=== PATIENT | female | born 1980 | race Caucasian/White ===

== ENCOUNTER 2017-08-29 23:52 | Emergency (ER) | payer OTHER ==
[2017-08-30] MEDS ORDERED: IPRATROPIUM/ALBUTEROL SULFATE 3 ML AMPUL.NEB NEB STA (00:02)
[2017-08-30] MEDS ORDERED: LEVOFLOXACIN 500 MG TABLET PO ONE (00:24)
[2017-08-30] MEDS ORDERED: ALBUTEROL 90MCG/PUFF INHALER IH ONE (00:24)
--- NOTE | 2017-08-30 00:28 | ED Physician Documentation ---
Upper Respiratory Symptoms - HISTORIAN Historian: patient, spouse - HPI Stated Complaint: Cough/Congestion Chief Complaint: Cough/ Upper Respiratory Onset: days ago (10) Associated Symptoms: fever, chills, earache, runny nose, sinus pain, sinus drainage, sore throat, productive cough. denies: sweating, hoarseness, allergy , hay fever, chest pain, bloody cough, shortness of breath, hurts to breathe, headache, other Further Comments: yes (36 year old female patient presents with complaint of cough, wheezing, headache, nasal congeston and sinus pressure for the past 10 days. Has used OTC pseudophed, mucinex and dayquil with no relief.) - ROS CONST/EYES: denies: weakness, eye redness, eye itching, other CVS/RESP: none, other (cough). denies: chest pain, shortness of breath, palpitations LYMPH: denies: leg swelling, rash, swollen glands, ankle swelling, other GI/: vomiting (related to coughing hard). denies: none, abdominal pain, problems urinating, nausea, diarrhea, black stools, other NEURO/PSYCH: denies: fainting, dizziness, confusion, anxiety, depression, other MS/SKIN: denies: joint pain, muscle aches, rash, other - PAST HX Lung Disease: none PE Risk Factors: none Surgeries/Procedures: , BLT Allergies/Adverse Reactions: Allergies Allergy/AdvReac Type Severity Reaction Status Date / Time No Known Allergies Allergy Unverified 08/30/17 00:21 Home Medications: Ambulatory Orders Medication Instructions Recorded NK [NK] 08/30/17 - SOCIAL HX Smoking History: cigarettes Drug Use: marijuana - FAMILY HX Family History: denies: none - VITAL SIGNS Vital Signs: Vital Signs Temp Pulse Resp BP Pulse Ox 97.4 F L 74 20 106/67 96 08/29/17 23:55 08/29/17 23:55 08/29/17 23:55 08/29/17 23:55 08/29/17 23:55 - REVIEWED ASSESSMENTS Nursing Assessment Reviewed: Yes Vitals Reviewed: Yes Progress - Progress Progress: Continued wheezing after Duoneb. Patient does not have nebulizer or inhaler at home. Albuterol 2 puff given Patient does not have prescription insurance. Coupon for levaquin and prednisone provided. Patient verbalized understanding of cost and how to use prescription. Reviewed discharge instructions. Verbalized understanding. Levaquin started in [facility], BBS improved after albuterol - faint exp. wheeze. List of free clinic provided. ED Results Lab/Radiology - Orders Orders: ED Orders Category Date Time Status Albuterol Sulfate [Ventolin Hfa] Med 08/30/17 00:24 Discontinued 2 puff IH NOW ONE Ipratropium/Albuterol Sulfate [Duoneb] Med 08/30/17 00:02 Discontinued 3 ml NEB STAT STA Levofloxacin [Levaquin] Med 08/30/17 00:24 Discontinued 500 mg PO NOW ONE Upper Respiratory Symptoms - EXAM General Appearance: moderate distress EENT: eyes nml inspection, lids & conjunct. 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 carton and can supply supervisor an over the counter decongestant such as pseudoped, dayquil and Nyquil at your pharmacy. Treat your symptoms with over the counter medication. You may want to try Vicks rub on your chest and/or feet Cough drops as needed for cough and sore throat. Increase your fluid intake juices, hot tea, non-caffeinated beverages Use a humidifier in the room where you sleep. You can also sit in a steam filled bathroom 1-2 times a day. Tylenol or Ibuprofen as needed for fever, pain and body aches. Start daily allergy medication such as Claritin, Tatianna or Zyrtec. Start a daily nasal spray such as Flonase or Nasonex You may benefit from the use of a netti pot follow package instructions. See your primary care doctor after you have completed your antibiotic if you symptoms have not resolved. Many times it takes multiple rounds of antibiotics to resolve a sinus infection. Condition: Stable Disposition: 01 HOME, SELF-CARE Decision to Admit: NO Decision Time: 12:40
[2017-08-30 00:52] VITALS: BP 106/67
== END 2017-08-30 00:45 | disposition home or self-care (01) ==
LOC: ED 23:52
DX: J01.40 Acute pansinusitis, unspecified (principal)
CPT/HCPCS: 94640; 99283

== ENCOUNTER 2018-05-18 09:24 | Emergency (ER) | payer BC ==
[2018-05-18 09:47] VITALS: BP 128/86
--- NOTE | 2018-05-18 09:52 | ED Physician Documentation ---
Upper Respiratory Symptoms - HISTORIAN Historian: patient - HPI Stated Complaint: Cough, right ear pain, headache Chief Complaint: Cough/ Upper Respiratory Additional Information: Patient is a 37-year-old female that presents to the ER with c/o upper resp. sx's that started 4 days ago. She has noted some wheezing when she coughs and occasionally has a productive cough with greenish/yellow sputum. She states that her face feels like she has pressure and her ears ache. She has not really tried anything over the counter- she figured it would just go away. She did state that she used a family members albuterol inhaler and it helped her to breath easier. Onset: days ago (4 days ago) Duration: sudden-Onset Context: denies: recent foreign travel, insect bite(s) Severity: moderate Associated Symptoms: chills, earache, runny nose, sinus pain, sinus drainage, sore throat, productive cough. denies: fever, sweating Worsened by Deep Breath: No Further Comments: no - ROS CONST/EYES: denies: eye redness, eye itching CVS/RESP: shortness of breath (with exertion due to congestion) LYMPH: denies: swollen glands GI/: denies: abdominal pain, vomiting, nausea, diarrhea NEURO/PSYCH: denies: fainting, dizziness MS/SKIN: muscle aches ("achy all over") - PAST HX Lung Disease: none PE Risk Factors: none Other History: other (eczema) Immunizations: UTD Allergies/Adverse Reactions: Allergies Allergy/AdvReac Type Severity Reaction Status Date / Time No Known Allergies Allergy Verified 05/18/18 09:46 Home Medications: Ambulatory Orders Medication Instructions Recorded Albuterol Sulfate [Proair HFA] 2 inh IH Q4-6 PRN #1 [email or web address] 05/18/18 Amoxicillin/Potassium Clav 1 each PO BID #20 tablet 05/18/18 [Augmentin 875Mg/125Mg] Methylprednisolone [Medrol] 4 mg PO DIRECTED #1 tab.ds.pk 05/18/18 - SOCIAL HX Smoking History: cigarettes Alcohol Use: none Drug Use: none - FAMILY HX Family History: no significant history - VITAL SIGNS Vital Signs: Vital Signs Temp Pulse Resp BP Pulse Ox 98.8 F 93 H 24 128/86 98 05/18/18 09:27 05/18/18 09:27 05/18/18 09:27 05/18/18 09:27 05/18/18 09:27 - REVIEWED ASSESSMENTS Nursing Assessment Reviewed: Yes Vitals Reviewed: Yes Upper Respiratory Symptoms - EXAM General Appearance: alert, mild distress EENT: eyes nml inspection, PERRL, pain over sinuses, maxillary, TM dullness (R), mucosal edema, purulent nasal drainage, other (erythema to right external ear canal) Neck: supple Respiratory: no resp. distress, speaks full sentences, wheezes Abdomen: non-tender, nml bowel sounds CVS: reg rate & rhythm, heart sounds normal, no murmur Skin: color nml, no rash, warm,dry Extremities: normal range of motion Neuro/Psych: oriented x3, neuro intact, mood/affect nml Discharge Clincal Impression: Upper respiratory infection, Acute sinusitis Prescriptions: Albuterol Sulfate [Proair HFA] 2 inh IH Q4-6 PRN #1 hfa.[email or web address] PRN Reason: Wheezing Amoxicillin/Potassium Clav [Augmentin 875Mg/125Mg] 1 each PO BID #20 tablet Methylprednisolone [Medrol] 4 mg PO DIRECTED #1 tab.ds.pk Referrals: Primary Doctor,No [Primary Care Provider] - 2 Days Additional Instructions: Take medications as directed Increase fluid intake (no caffeine or sugary drinks) Drink one cup of hot tea with a tsp of honey daily to thin secretions Alternate Tylenol and Motrin for discomfort Follow up with PCP as needed Condition: Good Disposition: 01 HOME, SELF-CARE Decision to Admit: NO Decision Time: 09:57
== END 2018-05-18 09:50 | disposition home or self-care (01) ==
LOC: ED 09:24
DX: J06.9 Acute upper respiratory infection, unspecified (principal); J01.90 Acute sinusitis, unspecified; Z72.0 Tobacco use
CPT/HCPCS: 99282; 99283